=== PATIENT | female | born 1980 | race Caucasian/White ===

== ENCOUNTER 2019-06-26 19:26 | Emergency (ER) | payer OTHER ==
--- NOTE | 2019-06-26 20:40 | ER Document Report ---
ED Medical Screen (RME) - General Chief Complaint: Flank Pain Stated Complaint: DIZZINESS Primary Care Provider: ZAN AMAYA MD [Primary Care Provider] - Follow up as needed Notes: 38-year-old female with history of cholecystectomy, appendectomy, nephrolithiasis presents to the emergency department sent over by the [place] for left flank pain. [facility] who was concerned that she may have some type of a renal obstruction she come here to get a CT scan to rule it out. Patient was recently treated for a UTI and completed a course of antibiotics this past Wednesday. Since then she has noticed a significant amount of blood in her urine and feels that she is passing clots. She denies fevers but complains of chills, complains of nausea with no vomiting, states that the pain radiates from her left flank down through her left lower quadrant into the suprapubic area and is stabbing, denies constipation or diarrhea. EXAM: L CVAT, abdomen soft, in NAD I have greeted and performed a rapid initial assessment of this patient. A comprehensive ED assessment and evaluation of the patient, analysis of test results and completion of medical decision making process will be conducted by an additional ED providers. TRAVEL OUTSIDE OF THE [place] IN LAST 30 DAYS: No - Related Data Allergies/Adverse Reactions: doxycycline Allergy (Verified 06/26/19 19:29) IVP dye Allergy (Uncoded 06/26/19 19:29) Physical Exam - Vital signs Vitals: Temp Pulse Resp BP Pulse Ox 98.2 F 80 15 117/78 99 06/26/19 19:30 06/26/19 19:30 06/26/19 19:30 06/26/19 19:30 06/26/19 19:30 Course - Vital Signs Vital signs: Temp Pulse Resp BP Pulse Ox 98.2 F 80 15 117/78 99 06/26/19 19:30 06/26/19 19:30 06/26/19 19:30 06/26/19 19:30 06/26/19 19:30 Doctor's Discharge - Discharge Referrals: ZAN AMAYA MD [Primary Care Provider] - Follow up as needed
[2019-06-26 21:07] LABS: ABSOLUTE BASOPHILS # (AUTO) 0.1 10^3/uL (0.0-0.2); ABSOLUTE EOSINOPHILS # (AUTO) 0.2 10^3/uL (0.0-0.6); ABSOLUTE LYMPHOCYTES (AUTO) 2.5 10^3/uL (0.5-4.7); ABSOLUTE MONOCYTES (AUTO) 0.5 10^3/uL (0.1-1.4); ABSOLUTE NEUT (AUTO) 4.3 10^3/uL (1.7-8.2); BASOPHILS % (AUTO) 1.3 % (0-2); EOSINOPHILS % (AUTO) 2.5 % (0-6); HEMATOCRIT 41.1 % (36.0-47.0); HEMOGLOBIN 13.9 g/dL (12.0-15.5); LYMPHOCYTES % (AUTO) 32.9 % (13-45); MEAN CORPUSCULAR HEMOGLOBIN 28.9 pg (27.0-33.4); MEAN CORPUSCULAR HGB CONC 33.9 g/dL (32.0-36.0); MEAN CORPUSCULAR VOLUME 85 fl (80-97); MONOCYTES % (AUTO) 6.2 % (3-13); PLATELET COUNT 284 10^3/uL (150-450); RED BLOOD COUNT 4.83 10^6/uL (3.72-5.28); RED CELL DISTRIBUTION WIDTH 13.5 % (11.5-14.0); SEGMENTED NEUTROPHILS % (AUTO) 57.1 % (42-78); TOTAL CELLS COUNTED % (AUTO) 100 %; WHITE BLOOD COUNT 7.5 10^3/uL (4.0-10.5)
[2019-06-26 21:13] LABS: APPEARANCE,URINE SLIGHTLY-CLOUDY; BILIRUBIN,URINE NEGATIVE (NEGATIVE); COLOR,URINE YELLOW; GLUCOSE, URINE NEGATIVE (NEGATIVE); KETONES,URINE NEGATIVE (NEGATIVE); LEUKOCYTE ESTERASE,URINE SMALL (NEGATIVE); NITRITE,URINE NEGATIVE (NEGATIVE); PROTEIN,URINE NEGATIVE (NEGATIVE); URINE SPECIFIC GRAVITY 1.006; UROBILINOGEN,URINE NEGATIVE mg/dL (<2.0)
[2019-06-26 21:23] LABS: ALANINE AMINOTRANSFERASE 20 U/L (9-52); ALBUMIN 4.8 g/dL (3.5-5.0); ALKALINE PHOSPHATASE 65 U/L (38-126); ANION GAP 9 (5-19); ASPARTATE AMINO TRANSFERASE 20 U/L (14-36); BILIRUBIN,DIRECT 0.2 mg/dL (0.0-0.4); BILIRUBIN,TOTAL 0.3 mg/dL (0.2-1.3); BLOOD UREA NITROGEN 12 mg/dL (7-20); CALCIUM 9.5 mg/dL (8.4-10.2); CARBON DIOXIDE 32 mmol/L (22-30); CHLORIDE 99 mmol/L (98-107); GLUCOSE 109 mg/dL (75-110); TOTAL PROTEIN 7.5 g/dL (6.3-8.2)
--- NOTE | 2019-06-26 22:33 | RADIOLOGY REPORT (SQ) ---
EXAM DESCRIPTION: CT ABDOMEN PELVIS WITHOUT IV CONTRAST COMPLETED DATE/TME: 06/26/2019 20:39 CLINICAL HISTORY: 38 years, Female, L flank pain This exam was performed according to our departmental dose-optimization program which includes automated exposure control, adjustment of the mA and/or kVp according to patient size and/or use of iterative reconstruction technique where applicable. FINDINGS: Visualized lung bases are within normal limits. Liver, spleen, pancreas, adrenal glands and kidneys are within normal limits. No hydronephrosis or biliary dilatation. Status post cholecystectomy. There is no renal, ureteral or bladder calculus. No dilated loops of bowel to suggest obstruction. Postoperative changes in the right lower quadrant. Bladder is unremarkable. Gynecologic organs are unremarkable. No abdominal or pelvic lymphadenopathy. Abdominal aorta is within normal limits. IMPRESSION: No acute disease. No evidence for nephrolithiasis or urinary obstruction.
[2019-06-26 23:48] LABS: CREATINE KINASE 54 U/L (30-135)
[2019-06-26 23:55] LABS: T.VAGINALIS (WET MOUNT) NO TRICHOMONAS SEEN; YEAST (WET MOUNT) NO YEAST SEEN
[2019-06-26 23:56] LABS: RBCS (WET MOUNT) 4+ RBCS SEEN; WBCS (WET MOUNT) FEW WBCS SEEN
--- NOTE | 2019-06-27 00:23 | RADIOLOGY REPORT (SQ) ---
US PELVIS EXAM DATE: 06/26/2019 11:29 PM CDT HISTORY: Pelvic pain. COMPARISON: None. TECHNIQUE: Grayscale, color Doppler, and spectral Doppler ultrasound images of the pelvis were obtained. FINDINGS: The uterus is anteverted and measures 8.9 x 5.0 x 4.1 cm. The endometrium is 9 mm in thickness. The cervix is closed and measures 3 cm in length. The right ovary measures 2.4 x 1.4 x 1.6 cm, and contains normal color Doppler blood flow. The left ovary was not visualized due to overlying bowel gas. IMPRESSION: Left ovary not visualized due to overlying bowel gas. Unremarkable right ovary and uterus.
[2019-06-27] MEDS ORDERED: LIDOCAINE 1% INJ-PF (10 MG/ML) 30 ML SDV INJ ONE (01:10)
[2019-06-27] MEDS ORDERED: AZITHROMYCIN 1 GM SUSP PACKET PO ONE (01:10)
[2019-06-27] MEDS ORDERED: CEFTRIAXONE INJ 250 MG VIAL IM ONE (01:10)
[2019-06-27 01:22] LABS: CHLAM PCR NOT DETECTED (NOT DETECT)
--- NOTE | 2019-06-27 01:33 | ER Document Report ---
Entered by DANIELE GOLDSMITH SCRIBE 06/26/19 [id number] Acting as scribe for:SHERIE RIOS DO ED General - General Chief Complaint: Flank Pain Stated Complaint: DIZZINESS Time Seen by Provider: 06/26/19 20:43 Primary Care Provider: ADOLFO BROWNLEE [Provider Group] - Follow up as needed JAYE YU MD [ACTIVE STAFF] - Follow up as needed Mode of Arrival: Ambulatory Information source: Patient Notes: Patient is a 38 year old female with a history of nephrolithiasis presents to the emergency department from [place] complaining of left flank pain and hematuria. Patient states she was diagnosed with a UTI and reports "being on the verge of uroseptic" last week and was given a 7 day course of Septra that she completed on 06/24/19. She states after she completed the Septra, she developed hematuria described as bright red and dark red with clots. She states her left flank pain is still present and radiates into her left abdomen and pelvic region which she describes as stabbing. She states she was instructed to come to the ED for fu rther evaluation for possible renal obstruction. She also complains of nausea. She denies any vomiting or diarrhea. TRAVEL OUTSIDE OF THE [place] IN LAST 30 DAYS: No - Related Data Allergies/Adverse Reactions: doxycycline Allergy (Verified 06/26/19 19:29) IVP dye Allergy (Uncoded 06/26/19 19:29) Past Medical History - General Information source: Patient - Social History Smoking Status: Never Smoker Cigarette use (# per day): No Chew tobacco use (# tins/day): No Smoking Education Provided: No Frequency of alcohol use: None Drug Abuse: None Family History: Reviewed & Not Pertinent Patient has suicidal ideation: No Patient has homicidal ideation: No Pulmonary Medical History: Reports: Hx Asthma Renal/ Medical History: Reports: Hx Kidney Stones Psychiatric Medical History: Reports: Hx Depression - anxiety Past Surgical History: Reports: Hx Appendectomy, Hx Cholecystectomy Review of Systems - Review of Systems Constitutional: No symptoms reported EENT: No symptoms reported Cardiovascular: No symptoms reported Respiratory: No symptoms reported Gastrointestinal: See HPI, Abdominal pain, Nausea Genitourinary: See HPI, Flank pain, Hematuria Female Genitourinary: See HPI Musculoskeletal: No symptoms reported Skin: No symptoms reported Hematologic/Lymphatic: No symptoms reported Neurological/Psychological: No symptoms reported -: Yes All other systems reviewed and negative Physical Exam - Vital signs Vitals: Temp Pulse Resp BP Pulse Ox 98.2 F 80 15 117/78 99 06/26/19 19:30 06/26/19 19:30 06/26/19 19:30 06/26/19 19:30 06/26/19 19:30 - Notes Notes: GENERAL: Alert, interacts well. No acute distress. HEAD: Normocephalic, atraumatic. EYES: Pupils equal, round, and reactive to light. Extraocular movements intact. ENT: Oral mucosa moist, tongue midline. NECK: Full range of motion. Supple. Trachea midline. LUNGS: Clear to auscultation bilaterally, no wheezes, rales, or rhonchi. No respiratory distress. HEART: Regular rate and rhythm. No murmurs, gallops, or rubs. ABDOMEN: Soft, LLQ tender to palpation. Non-distended. Bowel sounds present in all 4 quadrants. No guarding, rigidity, or rebound. EXTREMITIES: Moves all 4 extremities spontaneously. No edema, radial and dorsalis pedis pulses 2/4 bilaterally. No cyanosis. NEUROLOGICAL: Alert and oriented x3. Normal speech. PSYCH: Normal affect, normal mood. SKIN: Warm, dry, normal turgor. No rashes or lesions noted. BACK: Left CVA tenderness to percussion. Pelvic: Exquistely tender to palpation. Bloody discharge. Course - Re-evaluation Re-evalutation: 06/27/19 00:55 CBC unremarkable, CMP unremarkable, CK and CK-MB were ordered and are negative, this was ordered based off of the large blood but only 5 RBCs. Urinalysis shows large blood, small leukocyte esterase, trace bacteria. We will start her on Keflex given her residual UTI symptoms after completing course of Bactrim. Wet prep is negative for trichomonas, no yeast, gonorrhea and chlamydia swabs are still pending. CT scan of the abdomen and pelvis is negative, transvaginal ultrasound was ordered to look for tubo-ovarian abscess but unfortunately they could not visualize the left ovary due to overlying bowel gas. Given the normal white blood cell count and the lack of fever I do doubt tubo-ovarian abscess or ovarian torsion. I will treat patient for PID given the exquisite cervical motion tenderness that she had on examination. 06/27/19 01:11 As patient is allergic to doxycycline patient will have to be treated with an alternative regimen, I have chosen azithromycin 1 g once a week for 2 weeks in addition to Rocephin 250 mg IM. 06/27/19 01:33 Gonorrhea and chlamydia not detected. Discharged home. - Vital Signs Vital signs: Temp Pulse Resp BP Pulse Ox 98.0 F 73 16 125/80 100 06/27/19 00:55 06/27/19 00:55 06/27/19 00:55 06/27/19 00:55 06/27/19 00:55 - Laboratory Result Diagrams: 06/26/19 20:51 06/26/19 20:51 Laboratory results interpreted by me: 06/26/19 06/26/19 19:34 20:51 Carbon Dioxide 32 H Urine Blood LARGE H Ur Leukocyte Esterase SMALL H Discharge - Discharge Clinical Impression: Pelvic inflammatory disease UTI (urinary tract infection) Qualifiers: Urinary tract infection type: acute cystitis Hematuria presence: with hematuria Qualified Code(s): N30.01 - Acute cystitis with hematuria Condition: Stable Disposition: HOME, SELF-CARE Additional Instructions: Pelvic Inflammatory Disease You have been diagnosed as having pelvic inflammatory disease (PID). This is an infection of the fallopian tubes and surrounding areas of the pelvis. Symptoms are usually pelvic pain and discharge. The infection can do permanent damage to the tubes and ovaries. It should be taken very seriously. Treatment is antibiotics, which may be given by vein or by injection if the infection seems serious. It's important that you receive all recommended medication. Condoms help prevent spread of this infection to others. Because this infection is spread sexually, it's important that your sexual partner be checked before resuming sexual relations. If a culture shows gonorr hea or chlamydia organisms, the law requires that this be reported to the health department. Call the doctor or return at once if you develop increasing fever, rash, severe pelvic pain, vaginal bleeding (other than your period), or problems with your bladder or bowels. Urinary Tract Infection Your evaluation indicates that you have a urinary tract infection. This is due to germs growing in the bladder. This is a common problem. This infection usually responds quickly to antibiotics. Your antibiotic should be taken exactly as prescribed. Drink plenty of fluids -- three to four quarts a day. Occasionally, a bladder anesthetic will be prescribed to help stop the feeling of urgency until the antibiotic has a chance to clear the infection. This may cause your urine to be dark orange. Certain urine infections require a culture. If the doctor obtained a culture, the results will be back in two days. You should call to see if a change in treatment is needed. A repeat urinalysis after you finish treatment is often recommended. The physician will let you know if further testing is required. Call the doctor if you develop fever, chills, flank pain, inability to urinate, or blood in the urine. The ideal treatment for pelvic inflammatory disease is doxycycline however you are allergic to this. We are treating with you with azithromycin 1 g once a week for 2 weeks by mouth as well as a single shot of Rocephin 250 mg IM here. We have already given you 1 g of azithromycin here, you will need to take a second gram next WednesdayJuly 04. As this is not the best regimen for treating pelvic inflammatory disease I do want you rechecked by your primary care physician in 2 weeks. Return here sooner if you develop fevers, increasing abdominal pain or any new or concerning symptoms. Prescriptions: Cephalexin Monohydrate [Keflex 500 mg Capsule] 500 mg PO BID 5 Days capsule Referrals: JAYE YU MD [ACTIVE STAFF] - Follow up as needed [facility] [Provider Group] - Follow up as needed I personally performed the services described in the documentation, reviewed and edited the documentation which was dictated to the scribe in my presence, and it accurately records my words and actions.
[2019-06-27 02:14] VITALS: BP 132/79
== END 2019-06-27 02:12 | disposition home or self-care (01) ==
LOC: ER 19:26
DX: N73.9 Female pelvic inflammatory disease, unspecified (principal); N30.01 Acute cystitis with hematuria; R42 Dizziness and giddiness; R10.9 Unspecified abdominal pain; Z87.442 Personal history of urinary calculi; Z90.49 Acquired absence of other specified parts of digestive tract
CPT/HCPCS: 99284; 96374; 96375; 36415; 87086; 82553; 87210; 82550; 85025; 81025; 80053; 81001; 87491; 87591; 76830; 93976; 74176; J3490; Q0144; J0696

== ENCOUNTER 2019-11-26 14:16 | Emergency (ER) | payer OTHER ==
[2019-11-26] MEDS ORDERED: ONDANSETRON HCL INJ/PF 4 MG/2 ML SDV IV ONE (15:06)
--- NOTE | 2019-11-26 15:07 | ER Document Report ---
ED Medical Screen (RME) - General Chief Complaint: Nausea/Vomiting Stated Complaint: NAUSEA/VOMITING/HOT FLASHES Time Seen by Provider: 11/26/19 15:02 Primary Care Provider: PARVIZ WEBB [Primary Care Provider] - Follow up as needed TRAVEL OUTSIDE OF THE [place] IN LAST 30 DAYS: No - HPI Notes: 11/26/19 15:06 Patient is a 39-year-old female with a history of appendectomy and cholecy stectomy who presents complaining of nausea and vomiting since yesterday and unable to tolerate even a sip of water since then. She has had decreased urination and has not had a bowel movement in a couple days. Denies . No vaginal discharge, odor, or bleeding. Patient states that she has a little abdominal cramping, but nothing consistent. No fever, but has been feeling flushed intermittently. No chest pain or shortness of breath. I have treated and performed a rapid initial assessment of this patient. A comprehensive ED assessment and evaluation of the patient, analysis of test results and completion of medical decision making process will be conducted by additional ED providers. PHYSICAL EXAMINATION: GENERAL: Well-appearing, well-nourished and in no acute distress. A&Ox4. Answers questions appropriately. Abdomen: Limited exam in triage, but abdomen is otherwise soft throughout and no focal tenderness. - Related Data Allergies/Adverse Reactions: doxycycline Allergy (Verified 11/26/19 15:02) IVP dye Allergy (Uncoded 06/26/19 19:29) Past Medical History Pulmonary Medical History: Reports: Hx Asthma Renal/ Medical History: Reports: Hx Kidney Stones. Denies: Hx Peritoneal Dialysis Psychiatric Medical History: Reports: Hx Depression - anxiety Past Surgical History: Reports: Hx Appendectomy, Hx Cholecystectomy Physical Exam - Vital signs Vitals: Temp Pulse Resp BP Pulse Ox 98.1 F 86 18 124/79 98 11/26/19 14:45 11/26/19 14:45 11/26/19 14:45 11/26/19 14:45 11/26/19 14:45 Course - Vital Signs Vital signs: Temp Pulse Resp BP Pulse Ox 98.1 F 86 18 124/79 98 11/26/19 14:45 11/26/19 14:45 11/26/19 14:45 11/26/19 14:45 11/26/19 14:45 Doctor's Discharge - Discharge [facility] - Follow up as needed
[2019-11-26 16:00] LABS: APPEARANCE,URINE SLIGHTLY-CLOUDY; BILIRUBIN,URINE NEGATIVE (NEGATIVE); COLOR,URINE YELLOW; GLUCOSE, URINE NEGATIVE (NEGATIVE); KETONES,URINE 20 mg/dL (NEGATIVE); PROTEIN,URINE 30 mg/dL (NEGATIVE); URINE SPECIFIC GRAVITY 1.023; UROBILINOGEN,URINE NEGATIVE mg/dL (<2.0)
--- NOTE | 2019-11-26 16:11 | RADIOLOGY REPORT (SQ) ---
EXAM DESCRIPTION: KUB/ABDOMEN (SINGLE VIEW) COMPLETED DATE/TIME: 11/26/2019 4:01 pm REASON FOR STUDY: abd pain, n/v COMPARISON: None. NUMBER OF VIEWS: 2 frontal views. TECHNIQUE: Supine radiographic image of the abdomen acquired. LIMITATIONS: None. FINDINGS: BOWEL GAS PATTERN: Normal bowel gas pattern. No dilated loops. CALCIFICATIONS: No suspicious calcifications. SOFT TISSUES: No gross mass or suggestion of organomegaly. HARDWARE: Surgical clips within the right hemiabdomen. BONES: No acute fracture. No worrisome bone lesions. OTHER: No other significant finding. IMPRESSION: Nonobstructive bowel gas pattern. TECHNICAL DOCUMENTATION: JOB ID: [id number] [employer]- All Rights Reserved Reading location - IP/workstation name: [email or web address]
--- NOTE | 2019-11-26 16:12 | ER Document Report ---
ED General - General Chief Complaint: Nausea/Vomiting Stated Complaint: NAUSEA/VOMITING/HOT FLASHES Time Seen by Provider: 11/26/19 15:02 Primary Care Provider: TRACEY,PARVIZ [Primary Care Provider] - Follow up as needed TRAVEL OUTSIDE OF THE [place] IN LAST 30 DAYS: No - HPI Context: Patient presents with multiple episodes of nonbloody nonbilious vomiting that started yesterday after eating at a fast food restaurant approximately 3 hours after eating. Patient is passing gas denies any abdominal pain chest pain or shortness of breath. No recent fevers or illness until this time. No recent sick contacts. - Related Data Allergies/Adverse Reactions: doxycycline Allergy (Verified 11/26/19 15:02) IVP dye Allergy (Uncoded 06/26/19 19:29) Past Medical History - Social History Smoking Status: Former Smoker Chew tobacco use (# tins/day): No Family History: Reviewed & Not Pertinent Patient has suicidal ideation: No Patient has homicidal ideation: No Pulmonary Medical History: Reports: Hx Asthma Renal/ Medical History: Reports: Hx Kidney Stones. Denies: Hx Peritoneal Dialysis Psychiatric Medical History: Reports: Hx Depression - anxiety Past Surgical History: Reports: Hx Appendectomy, Hx Cholecystectomy Review of Systems - Review of Systems Constitutional: No symptoms reported EENT: No symptoms reported Cardiovascular: No symptoms reported Respiratory: No symptoms reported Gastrointestinal: See HPI Genitourinary: No symptoms reported Female Genitourinary: No symptoms reported Musculoskeletal: No symptoms reported Skin: No symptoms reported Hematologic/Lymphatic: No symptoms reported Neurological/Psychological: No symptoms reported Physical Exam - Vital signs Vitals: Temp Pulse Resp BP Pulse Ox 98.1 F 86 18 124/79 98 11/26/19 14:45 11/26/19 14:45 11/26/19 14:45 11/26/19 14:45 11/26/19 14:45 - General General appearance: Appears well, Alert - HEENT Head: Normocephalic, Atraumatic Eyes: Normal Conjunctiva: Normal Cornea: Normal Pupils: PERRL Nasal: Normal Mouth/Lips: Normal Mucous membranes: Dry - Respiratory Respiratory status: No respiratory distress Chest status: Nontender Breath sounds: Normal - Cardiovascular Rhythm: Regular Heart sounds: Normal auscultation Murmur: No - Abdominal Inspection: Normal Distension: No distension Bowel sounds: Normal Tenderness: Nontender - Neurological Neuro grossly intact: Yes Cognition: Normal Orientation: AAOx4 Course - Re-evaluation Re-evalutation: 11/26/19 17:55 Mild leukocytosis nonspecific otherwise all labs within normal limits are nonsignificant. No active vomiting or diarrhea in the emergency department. Will provide Zofran. Return precautions provided. - Vital Signs Vital signs: Temp Pulse Resp BP Pulse Ox 98.1 F 86 18 124/79 98 11/26/19 14:45 11/26/19 14:45 11/26/19 14:45 11/26/19 14:45 11/26/19 14:45 - Laboratory Result Diagrams: 11/26/19 16:11 11/26/19 16:11 Laboratory results interpreted by me: 11/26/19 11/26/19 15:20 16:11 WBC 13.4 H Lymph % (Auto) 7.4 L Absolute Neuts (auto) 11.9 H Seg Neutrophils % 88.7 H Urine Protein 30 H Urine Ketones 20 H Leukocyte Esterase Rfl TRACE H Discharge - Discharge Clinical Impression: Nausea vomiting and diarrhea Condition: Good Disposition: HOME, SELF-CARE Instructions: Antinausea Medication ([facility]), Intravenous (IV) Fluids ([facility]), Vomiting ([facility]), Diarrhea, Nonspecific ([facility]) Prescriptions: Ondansetron [Zofran Odt 4 mg Tablet] 1 tab PO ASDIR PRN #15 tab.rapdis PRN Reason: For Nausea/Vomiting [facility]errals: [facility] [[facility] - Follow up as needed
[2019-11-26] MEDS: NORMAL SALINE 1000 ML 1,000 ML IV PRN ×2 (16:14→17:09)
[2019-11-26 16:48] LABS: ABSOLUTE BASOPHILS # (AUTO) 0.1 10^3/uL (0.0-0.2); ABSOLUTE MONOCYTES (AUTO) 0.5 10^3/uL (0.1-1.4); ABSOLUTE NEUT (AUTO) 11.9 10^3/uL (1.7-8.2); BASOPHILS % (AUTO) 0.4 % (0-2); EOSINOPHILS % (AUTO) 0.1 % (0-6); HEMATOCRIT 40.2 % (36.0-47.0); HEMOGLOBIN 13.7 g/dL (12.0-15.5); LYMPHOCYTES % (AUTO) 7.4 % (13-45); MEAN CORPUSCULAR HEMOGLOBIN 29.4 pg (27.0-33.4); MEAN CORPUSCULAR HGB CONC 34.1 g/dL (32.0-36.0); MEAN CORPUSCULAR VOLUME 86 fl (80-97); MONOCYTES % (AUTO) 3.4 % (3-13); PLATELET COUNT 293 10^3/uL (150-450); RED BLOOD COUNT 4.66 10^6/uL (3.72-5.28); RED CELL DISTRIBUTION WIDTH 13.6 % (11.5-14.0); SEGMENTED NEUTROPHILS % (AUTO) 88.7 % (42-78); TOTAL CELLS COUNTED % (AUTO) 100 %; WHITE BLOOD COUNT 13.4 10^3/uL (4.0-10.5)
[2019-11-26 17:07] LABS: ALBUMIN 4.8 g/dL (3.5-5.0); ALKALINE PHOSPHATASE 82 U/L (38-126); ANION GAP 14 (5-19); ASPARTATE AMINO TRANSFERASE 21 U/L (14-36); BILIRUBIN,DIRECT 0.2 mg/dL (0.0-0.4); BILIRUBIN,TOTAL 0.6 mg/dL (0.2-1.3); BLOOD UREA NITROGEN 10 mg/dL (7-20); CALCIUM 9.7 mg/dL (8.4-10.2); CARBON DIOXIDE 26 mmol/L (22-30); CHLORIDE 98 mmol/L (98-107); GLUCOSE 100 mg/dL (75-110); POTASSIUM 4.1 mmol/L (3.6-5.0); TOTAL PROTEIN 7.8 g/dL (6.3-8.2)
[2019-11-26 18:28] VITALS: BP 132/84
== END 2019-11-26 18:26 | disposition home or self-care (01) ==
LOC: ER 14:16
DX: R11.2 Nausea with vomiting, unspecified (principal); R19.7 Diarrhea, unspecified; Z91.041 Radiographic dye allergy status; Z90.49 Acquired absence of other specified parts of digestive tract
CPT/HCPCS: 99284; 96361; 96374; 36415; 83690; 85025; 81025; 80053; 81001; 74018; J2405; J7030